=== PATIENT | female | born 1980 | race Caucasian/White ===

== ENCOUNTER 2018-02-16 09:11 | Emergency (ER) | payer OTHER ==
[2018-02-16 09:25] VITALS: BP 132/75
[2018-02-16] MEDS ORDERED: NORMAL SALINE 1000 ML 1,000 ML IV ONE (10:24)
--- NOTE | 2018-02-16 10:25 | ER Document Report ---
ED Medical Screen (RME) - General Chief Complaint: Sore Throat Stated Complaint: HEADACHE, BODY ACHES, POSSIBLE DEHYDRATION Time Seen by Provider: 02/16/18 10:23 Notes: Patient has CML. She states she was recently diagnosed with strep throat several days ago. She states she is still taking antibiotic. She states she has been vomiting and feels dehydrated. She states she called her oncologist who recommended that she come to the hospital. She states she is currently in remission from the CML and is not taking any medications for leukemia. TRAVEL OUTSIDE OF THE [place] IN LAST 30 DAYS: No - Related Data Allergies/Adverse Reactions: acetaminophen [From Vicodin] Allergy (Verified 12/19/14 21:14) hydrocodone bitartrate [From Vicodin] Allergy (Verified 12/19/14 21:14) promethazine HCl [From Phenergan] Allergy (Verified 12/19/14 21:14) Past Medical History - Social History Chew tobacco use (# tins/day): No Frequency of alcohol use: Occasional Drug Abuse: None Neurological Medical History: Reports: Hx Migraine Renal/ Medical History: Denies: Hx Peritoneal Dialysis Malignancy Medical History: Reports: Hx Leukemia - CML--Treated at [facility] into remission, no current medications. Past Surgical History: Reports: Hx Adenoidectomy, Hx Section - x 2, Hx Gynecologic Surgery - Laparoscopy for endometriosis, Hx Orthopedic Surgery - Shoulder arthroscopic surgery, Hx Tonsillectomy Physical Exam - Vital signs Vitals: Temp Pulse Resp BP Pulse Ox 98.8 F 85 12 132/75 H 100 02/16/18 09:24 02/16/18 09:24 02/16/18 09:24 02/16/18 09:24 02/16/18 09:24 Course - Vital Signs Vital signs: Temp Pulse Resp BP Pulse Ox 98.8 F 85 12 132/75 H 100 02/16/18 09:24 02/16/18 09:24 02/16/18 09:24 02/16/18 09:24 02/16/18 09:24
[2018-02-16 10:51] LABS: ABSOLUTE EOSINOPHILS # (AUTO) 0.1 10^3/uL (0.0-0.6); ABSOLUTE MONOCYTES (AUTO) 0.5 10^3/uL (0.1-1.4); ABSOLUTE NEUT (AUTO) 4.2 10^3/uL (1.7-8.2); BASOPHILS % (AUTO) 0.6 % (0-2); EOSINOPHILS % (AUTO) 1.8 % (0-6); HEMATOCRIT 39.5 % (36.0-47.0); HEMOGLOBIN 13.7 g/dL (12.0-15.5); LYMPHOCYTES % (AUTO) 37.3 % (13-45); MEAN CORPUSCULAR HEMOGLOBIN 29.2 pg (27.0-33.4); MEAN CORPUSCULAR HGB CONC 34.7 g/dL (32.0-36.0); MEAN CORPUSCULAR VOLUME 84 fl (80-97); MONOCYTES % (AUTO) 6.7 % (3-13); PLATELET COUNT 310 10^3/uL (150-450); RED CELL DISTRIBUTION WIDTH 12.8 % (11.5-14.0); SEGMENTED NEUTROPHILS % (AUTO) 53.6 % (42-78); TOTAL CELLS COUNTED % (AUTO) 100 %; WHITE BLOOD COUNT 7.9 10^3/uL (4.0-10.5)
[2018-02-16 11:11] LABS: APPEARANCE,URINE CLEAR; BILIRUBIN,URINE NEGATIVE (NEGATIVE); COLOR,URINE YELLOW; GLUCOSE, URINE NEGATIVE (NEGATIVE); KETONES,URINE NEGATIVE (NEGATIVE); LEUKOCYTE ESTERASE,URINE NEGATIVE (NEGATIVE); NITRITE,URINE NEGATIVE (NEGATIVE); PROTEIN,URINE NEGATIVE (NEGATIVE); URINE SPECIFIC GRAVITY 1.028; UROBILINOGEN,URINE NEGATIVE mg/dL (<2.0)
[2018-02-16 11:15] LABS: ALANINE AMINOTRANSFERASE 16 U/L (9-52); ALBUMIN 4.4 g/dL (3.5-5.0); ALKALINE PHOSPHATASE 54 U/L (38-126); ANION GAP 12 (5-19); ASPARTATE AMINO TRANSFERASE 13 U/L (14-36); BILIRUBIN,DIRECT 0.1 mg/dL (0.0-0.4); BILIRUBIN,TOTAL 0.5 mg/dL (0.2-1.3); BLOOD UREA NITROGEN 11 mg/dL (7-20); CALCIUM 9.6 mg/dL (8.4-10.2); CARBON DIOXIDE 27 mmol/L (22-30); CHLORIDE 106 mmol/L (98-107); GLUCOSE 90 mg/dL (75-110); POTASSIUM 4.2 mmol/L (3.6-5.0); SODIUM 144.7 mmol/L (137-145); TOTAL PROTEIN 6.8 g/dL (6.3-8.2)
[2018-02-16] MEDS ORDERED: DEXTROSE 5%-LACTATED RINGERS 1,000 ML IV ONE (11:30)
[2018-02-16] MEDS ORDERED: KETOROLAC TROMETHAMINE INJ/PF 30 MG/1 ML SDV IV ONE (11:31)
--- NOTE | 2018-02-16 11:35 | ER Document Report ---
ED General - General Chief Complaint: Sore Throat Stated Complaint: HEADACHE, BODY ACHES, POSSIBLE DEHYDRATION Time Seen by Provider: 02/16/18 10:23 Notes: History of present illness-37 years old female who was diagnosed with strep throat a few days ago on penicillin, presents today with persistent throat pain as well as general malaise feeling tired and dehydrated. With a history of CML. Denies any nausea vomiting denies any fever chills diarrhea. Denies any dysuria frequency urgency. REVIEW OF SYSTEMS: CONSTITUTIONAL : Denies fever, chills, or sweats. Denies recent illness. EENT: Denies eye, ear, throat, or mouth pain or symptoms. Denies nasal or sinus congestion or discharge. Denies throat, tongue, or mouth swelling or difficulty swallowing. CARDIOVASCULAR: Denies chest pain. Denies palpitations or racing or irregular heart beat. Denies ankle edema. RESPIRATORY: Denies cough, cold, or chest congestion. Denies shortness of breath, difficulty breathing, or wheezing. GASTROINTESTINAL: Denies abdominal pain or distention. Denies nausea, vomiting , or diarrhea. Denies blood in vomitus, stools, or per rectum. Denies black, tarry stools. Denies constipation. GENITOURINARY: Denies difficulty urinating, painful urination, burning, frequency, blood in urine, or discharge. FEMALE GENITOURINARY: Denies vaginal bleeding, heavy or abnormal periods, irregular periods. Denies vaginal discharge or odor. MUSCULOSKELETAL: Denies back or neck pain or stiffness. Denies joint pain or swelling. SKIN: Denies rash, lesions or sores. HEMATOLOGIC : Denies easy bruising or bleeding. LYMPHATIC: Denies swollen, enlarged glands. NEUROLOGICAL: Denies confusion or altered mental status. Denies passing out or loss of consciousness. Denies dizziness or lightheadedness. Denies headache. Denies weakness or paralysis or loss of use of either side. Denies problems with gait or speech. Denies sensory loss, numbness, or tingling. Denies seizures. PSYCHIATRIC: Denies anxiety or stress. Denies depression, suicidal ideation, or homicidal ideation. ALL OTHER SYSTEMS REVIEWED AND NEGATIVE. PHYSICAL EXAMINATION: GENERAL: Well-appearing, well-nourished and in no acute distress. HEAD: Atraumatic, normocephalic. EYES: Pupils equal round and reactive to light, extraocular movements intact, conjunctiva are normal. ENT: Nares patent, oropharynx clear without exudates. Moist mucous membranes. NECK: Normal range of motion, supple without lymphadenopathy LUNGS: Breath sounds clear to auscultation bilaterally and equal. No wheezes rales or rhonchi. HEART: Regular rate and rhythm without murmurs ABDOMEN: Soft, nontender, nondistended abdomen. No guarding, no rebound. No masses appreciated. Female : deferred Musculoskeletal: Normal range of motion, no pitting or edema. No cyanosis. NEUROLOGICAL: Cranial nerves grossly intact. Normal speech, normal gait. Normal sensory, motor exams PSYCH: Normal mood, normal affect. SKIN: Warm, Dry, normal turgor, no rashes or lesions noted. Dictation was performed using [employer] voice recognition software TRAVEL OUTSIDE OF THE [place] IN LAST 30 DAYS: No - HPI Onset: Yesterday - Related Data Allergies/Adverse Reactions: acetaminophen [From Vicodin] Allergy (Verified 12/19/14 21:14) hydrocodone bitartrate [From Vicodin] Allergy (Verified 12/19/14 21:14) promethazine HCl [From Phenergan] Allergy (Verified 12/19/14 21:14) Past Medical History - Social History Smoking Status: Never Smoker Chew tobacco use (# tins/day): No Frequency of alcohol use: Occasional Drug Abuse: None Family History: Reviewed & Not Pertinent Patient has suicidal ideation: No Patient has homicidal ideation: No Neurological Medical History: Reports: Hx Migraine Renal/ Medical History: Denies: Hx Peritoneal Dialysis Malignancy Medical History: Reports: Hx Leukemia - CML--Treated at [facility] into remission, no current medications. Past Surgical History: Reports: Hx Adenoidectomy, Hx Section - x 2, Hx Gynecologic Surgery - Laparoscopy for endometriosis, Hx Orthopedic Surgery - Shoulder arthroscopic surgery, Hx Tonsillectomy Review of Systems - Review of Systems Notes: As per history of complain Physical Exam - Vital signs Vitals: Temp Pulse Resp BP Pulse Ox 98.8 F 85 12 132/75 H 100 02/16/18 09:24 02/16/18 09:24 02/16/18 09:24 02/16/18 09:24 02/16/18 09:24 Course - Re-evaluation Re-evalutation: 02/16/18 13:22 She was given IV fluid as well as IV ceftriaxone. With clinical improvement discharge home - Vital Signs Vital signs: Temp Pulse Resp BP Pulse Ox 98.8 F 85 12 132/75 H 100 02/16/18 09:24 02/16/18 09:24 02/16/18 09:24 02/16/18 09:24 02/16/18 09:24 - Laboratory Result Diagrams: 02/16/18 10:27 02/16/18 10:27 Laboratory results interpreted by me: 02/16/18 10:27 AST 13 L Discharge - Discharge Clinical Impression: Dehydration Pharyngitis Qualifiers: Pharyngitis/tonsillitis etiology: streptococcus Qualified Code(s): J02.0 - Streptococcal pharyngitis Instructions: Sore Throat ([facility]), Dehydration ([facility])
[2018-02-16] MEDS ORDERED: CEFTRIAXONE 1 GM/D5W RTU 50 ML IV ONE (12:37)
[2018-02-16] MEDS ORDERED: CEFTRIAXONE SODIUM 1,000 MG in NORMAL SALINE 100 ML IV ONE (13:30)
== END 2018-02-16 13:55 | disposition home or self-care (01) ==
LOC: ER 09:11
DX: J02.0 Streptococcal pharyngitis (principal); E86.0 Dehydration; R51 Headache; M79.1 Myalgia; R53.81 Other malaise; Z85.6 Personal history of leukemia
CPT/HCPCS: 99283; 96361; 96375; 96365; 36415; 85025; 81025; 80053; 81001; J1885; J0696; J7030